=== PATIENT | female | born 1980 | race Caucasian/White ===

== ENCOUNTER 2018-09-09 19:02 | Emergency (ER) | payer OTHER ==
--- NOTE | 2018-09-09 19:54 | RAD REPORT ---
EXAM DESCRIPTION: CT - Head Brain Wo Cont - 09/09/2018 7:48 pm CLINICAL HISTORY: NUMBNESS Drowsiness COMPARISON: No comparisons TECHNIQUE: All CT scans are performed using dose optimization technique as appropriate and may inclu de automated exposure control or mA/KV adjustment according to patient size. FINDINGS: No intracranial hemorrhage, hydrocephalus or extra-axial fluid collection.No areas of brai n edema or evidence of midline shift. The paranasal sinuses and mastoids are clear. The calvarium is intact. IMPRESSION: No acute intracranial abnormality.
[2018-09-09 20:28] LABS: Absolute Lymphocytes (CBC) 2.5 K/uL (0.7-4.9); Absolute Monocytes 0.7 K/uL (0.1-1.3); Absolute Neutrophil 4.6 K/uL (1.8-8.0); Basophils % 0.9 % (0-1.3); Eosinophils % 11.6 % (0-4.4); Lymphocytes % 27.9 % (15.3-44.8); MPV 9.1 fL (7.6-11.3); Monocytes % 8.1 % (3.3-12.3); RBC Red Blood Cell Count 4.28 M/uL (3.86-4.86)
[2018-09-09 20:46] LABS: BUN Blood Urea Nitrogen 12 mg/dL (7-18); Bicarbonate 24 mmol/L (21-32); Glucose Level 84 mg/dL (74-106); Potassium 3.7 mmol/L (3.5-5.1); Sodium Level 138 mmol/L (136-145); Troponin (Emerg Dept Use Only) < 0.02 ng/mL (0.0-0.045)
[2018-09-09 20:59] LABS: Urine Blood NEGATIVE (NEG); Urine Glucose NEGATIVE (NEG); Urine Protein NEGATIVE (NEG); Urine Specific Gravity 1.015 (1.005-1.030); Urine pH 7.5 (5.0-7.0)
--- NOTE | 2018-09-09 21:42 | ER ---
Nurse's Notes [facility] Name: Malinda Cameron Age: 37 yrs Sex: Female : 1980 Arrival Date: 09/09/2018 Time: 19:04 Bed 6 Private MD: Diagnosis: Mononeuropathies of upper limb Presentation: 09/09 19:08 Presenting complaint: Patient states: that this am when she woke up her left thumb was fc tingling. Then this afternoon she noted that her left lower arm was tingling. Now sitting in triage the tingling is up to her upper arm. No leg deficits, speech deficits or headache. Pt able to hold clipboard and pen in triage and ambulate with no difficulties. Transition of care: patient was not received from another setting of care. Onset of symptoms was September 09, 2018 at 08:00. Risk Assessment: Do you want to hurt yourself or someone else? Patient reports no desire to harm self or others. Initial Sepsis Screen: Does the patient meet any 2 criteria? No. Patient's initial sepsis screen is negative. Does the patient have a suspected source of infection? No. Patient's initial sepsis screen is negative. Care prior to arrival: None. 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 - Social history:: Smoking status: Patient uses tobacco products, smokes one-half pack cigarettes per day, Patient/guardian denies using alcohol, street drugs. - Ebola Screening: : Patient negative for fever greater than or equal to 101.5 degrees Fahrenheit, and additional compatible Ebola Virus Disease symptoms Patient denies exposure to infectious person Patient denies travel to an Ebola-affected area in the 21 days before illness onset. Screenin:05 Abuse screen: Denies threats or abuse. Denies injuries from another. Nutritional ak1 screening: No deficits noted. Tuberculosis screening: No symptoms or risk factors identified. Fall Risk None identified. Assessment: 20:08 General: Appears in no apparent distress. Behavior is calm, cooperative. Pain: Denies ak1 pain. Pain began this morning. Neuro: Level of Consciousness is awake, alert, obeys commands, Oriented to person, place, time, situation, Machine Technician are equal bilaterally Moves all extremities. Gait is steady, Speech is normal, Facial symmetry appears normal, Pupils are PERRLA, Numbness in left arm. Cardiovascular: No deficits noted. Respiratory: No deficits noted. GI: No signs and/or symptoms were reported involving the gastrointestinal system. : No signs and/or symptoms were reported regarding the genitourinary system. EENT: No signs and/or symptoms were reported regarding the EENT system. Derm: No signs and/or symptoms reported regarding the dermatologic system. Musculoskeletal: No signs and/or symptoms reported regarding the musculoskeletal system. 21:04 Reassessment: Patient appears in no apparent distress at this time. No changes from ak1 previously documented assessment. Patient and/or family updated on plan of care and expected duration. Pain level reassessed. Patient is alert, oriented x 3, equal unlabored respirations, skin warm/dry/pink. Patient denies pain at this time. 21:45 Reassessment: Patient appears in no apparent distress at this time. No changes from ak1 previously documented assessment. Patient and/or family updated on plan of care and expected duration. Pain level reassessed. Patient states feeling better. Patient states symptoms have improved. Vital Signs: 19:11 BP 128 / 87; Pulse 69; Resp 18; Temp 98.(O); Pulse Ox 100% on R/A; Weight 99.79 kg (R); fc Height 5 ft. 9 in. (175.26 cm) (R); Pain 0/10; 20:24 BP 123 / 63; Pulse 55; Resp 16; Temp 98.; Pulse Ox 100% on R/A; Pain 0/10; ak1 21:05 BP 130 / 88; Pulse 59; Resp 16; Temp 98.2; Pulse Ox 100% on R/A; Pain 0/10; ak1 19:11 Body Mass Index 32.49 (99.79 kg, 175.26 cm) fc NIH Stroke Scale Scores: 21:43 NIHSS Score: 0 ED Course: 19:04 Patient arrived in ED. es 19:10 Triage completed. fc 19:11 Arm band placed on Patient placed in an exam room, on a stretcher. 19:16 Luis Snyder MD is Attending Physician. gs 19:[address] via wheelchair. vm2 19:47 CT completed. Patient tolerated procedure well. Patient moved back from CT. vm2 19:48 CT Head Brain wo Cont In Process Unspecified. EDMS 20:04 Nabila Escobar, RN is Primary Nurse. ak1 20:05 Patient has correct armband on for positive identification. Placed in gown. Bed in low ak1 position. Call light in reach. Side rails up X 1. Pulse ox on. NIBP on. 20:05 No provider procedures requiring assistance completed. ak1 20:23 Initial lab(s) drawn, by me, sent to lab. EKG done, by ED staff, reviewed by Luis Snyder MD. 21:05 Patient did not have IV access during this emergency room visit. ak1 21:41 Rivera Nichols MD is Referral Physician. Administered Medications: No medications were administered Outcome: 21:04 Condition: stable ak1 21:42 Discharge ordered by . 21:45 Discharged to home ambulatory. ak1 21:45 Discharge instructions given to patient, Instructed on discharge instructions, follow up and referral plans. Demonstrated understanding of instructions, follow-up care. 21:45 Patient left the ED. ak1 NIH Stroke Scale - NIH Stroke Score Date: 09/09/2018 Time: 21:43 Total Score = 0 1a. Level of Consciousness (LOC) - 0(Alert) 1b. Level of Consciousness (LOC) (Year \T\ Age) - 0(Both) 1c. LOC Commands (Open \T\ Closes Eyes/E Business Manager) - 0(Both) 2. Best Gaze (Lateral Gaze Paresis) - 0(Normal) 3. Visual Field Loss - 0(No visual loss) 4. Facial Palsy - 0(Normal) 5a. Left Arm: Motor (10-second hold) - 0(No drift) 5b. Right Arm: Motor (10-second hold) - 0(No drift) 6a. Left Leg: Motor (5-second hold - always test supine) - 0(No drift) 6b. Right Leg: Motor (5-second hold - always test supine) - 0(No drift) 7. Limb Ataxia (finger/nose \T\ heel/brandt - test with eyes open) - 0(Absent) 8. Sensory Loss (pinprick arms/legs/face) - 0(Normal) 9. Best Language: Aphasia (description/naming/reading) - 0(No aphasia) 10. Dysarthria (speech clarity - read or repeat words) - 0(Normal) 11. Extinction and Inattention (visual/tactile/auditory/spatial/personal) - 0(No abnormality) Initials: Signatures: Dispatcher [employer] Briana Chaney Felicia RN RN Nabila Adams RN RN lee1 Yenifer Hussein Luis Haines MD MD Corrections: (The following items were deleted from the chart) 19:13 19:08 Presenting complaint: Patient states: that this am when she woke up her fc left thumb was tingling. Then this afternoon she noted that her left lower arm was tingling. Now sitting in triage the tingling is up to her upper arm. No leg deficits, speech deficits or headache. fc
--- NOTE | 2018-09-09 21:42 | EDPHYS ---
Physician Documentation [facility] Name: Malinda Cameron Age: 37 yrs Sex: Female : 1980 Arrival Date: 09/09/2018 Time: 19:04 Bed 6 Private MD: ED Physician Luis Snyder HPI: 09/09 21:43 This 37 yrs old Female presents to ER via Ambulatory with complaints of gs Numbness Of Arm. 21:43 The patient's problem is reported as paresthesias, in left upper extremity. Onset: The gs symptoms/episode began/occurred this morning, at 07:00. Duration: The episodes are intermittent. The symptoms are alleviated by nothing. The symptoms are aggravated by nothing. Associated signs and symptoms: Pertinent negatives: confusion, weakness. Severity of symptoms: At their worst the symptoms were mild in the emergency department the symptoms are unchanged. The patient has not experienced similar symptoms in the past. The patient has not recently seen a physician. 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 - Social history:: Smoking status: Patient uses tobacco products, smokes one-half pack cigarettes per day, Patient/guardian denies using alcohol, street drugs. - Ebola Screening: : Patient negative for fever greater than or equal to 101.5 degrees Fahrenheit, and additional compatible Ebola Virus Disease symptoms Patient denies exposure to infectious person Patient denies travel to an Ebola-affected area in the 21 days before illness onset. ROS: 21:43 All other systems are negative. gs Exam: 21:43 Head/Face: Normocephalic, atraumatic. Eyes: Pupils equal round and reactive to light, gs extra-ocular motions intact. Lids and lashes normal. Conjunctiva and sclera are non-icteric and not injected. Cornea within normal limits. Periorbital areas with no swelling, redness, or edema. ENT: Nares patent. No nasal discharge, no septal abnormalities noted. Tympanic membranes are normal and external auditory canals are clear. Oropharynx with no redness, swelling, or masses, exudates, or evidence of obstruction, uvula midline. Mucous membranes moist. Neck: Trachea midline, no thyromegaly or masses palpated, and no cervical lymphadenopathy. Supple, full range of motion without nuchal rigidity, or vertebral point tenderness. No Meningismus. Chest/axilla: Normal chest wall appearance and motion. Nontender with no deformity. No lesions are appreciated. Cardiovascular: Regular rate and rhythm with a normal S1 and S2. No gallops, murmurs, or rubs. Normal PMI, no JVD. No pulse deficits. Respiratory: Lungs have equal breath sounds bilaterally, clear to auscultation and percussion. No rales, rhonchi or wheezes noted. No increased work of breathing, no retractions or nasal flaring. Abdomen/GI: Soft, non-tender, with normal bowel sounds. No distension or tympany. No guarding or rebound. No evidence of tenderness throughout. Back: No spinal tenderness. No costovertebral tenderness. Full range of motion. Skin: Warm, dry with normal turgor. Normal color with no rashes, no lesions, and no evidence of cellulitis. MS/ Extremity: Pulses equal, no cyanosis. Neurovascular intact. Full, normal range of motion. 21:43 Constitutional: The patient appears in no acute distress, alert, awake. 21:43 Neuro: Exam negative for Orientation: is normal, to person, place, time \T\ situation. Mentation: is normal, Cranial nerves: CN II- XII are normal as tested, Cerebellar function: normal finger to nose testing, Motor: moves all fours, strength is normal, Sensation: tingling, that is mild, of the left wrist and palmar aspect of left forearm, pin prick testing is normal. Vital Signs: 19:11 BP 128 / 87; Pulse 69; Resp 18; Temp 98.(O); Pulse Ox 100% on R/A; Weight 99.79 kg (R); fc Height 5 ft. 9 in. (175.26 cm) (R); Pain 0/10; 20:24 BP 123 / 63; Pulse 55; Resp 16; Temp 98.; Pulse Ox 100% on R/A; Pain 0/10; ak1 21:05 BP 130 / 88; Pulse 59; Resp 16; Temp 98.2; Pulse Ox 100% on R/A; Pain 0/10; ak1 19:11 Body Mass Index 32.49 (99.79 kg, 175.26 cm) fc NIH Stroke Scale Scores: 21:43 NIHSS Score: 0 gs MDM: 19:26 Patient medically screened. gs 21:43 Differential diagnosis: neuropathy, cervical radiculopathy, neuropraxia,cva. Data gs reviewed: vital signs, nurses notes. Counseling: I had a detailed discussion with the patient and/or guardian regarding: the historical points, exam findings, and any diagnostic results supporting the discharge/admit diagnosis, lab results, radiology results, the need for outpatient follow up. Response to treatment: the patient's symptoms have markedly improved after treatment, and as a result, I will discharge patient. 09/09 19:28 Order name: CBC with Diff; Complete Time: 21:04 09/09 19:28 Order name: Basic Metabolic Panel; Complete Time: 21:04 09/09 19:28 Order name: Troponin (emerg Dept Use Only); Complete Time: 21:04 gs 09/09 19:28 Order name: CT Head Brain wo Cont; Complete Time: 20:07 09/09 20:35 Order name: Urine Dipstick--Ancillary (enter results); Complete Time: 21:04 ag4 09/09 20:35 Order name: Urine --Ancillary (enter results); Complete Time: 21:04 ag4 09/09 19:28 Order name: EKG - Nurse/Tech; Complete Time: 20:10 09/09 19:28 Order name: EKG; Complete Time: 19:28 gs 09/09 19:28 Order name: Urine Test (obtain specimen); Complete Time: 20:23 gs 09/09 19:28 Order name: Urine Dipstick-Ancillary (obtain specimen); Complete Time: 20:23 gs Administered Medications: No medications were administered Disposition: 09/09/18 21:42 Discharged to Home. Impression: Mononeuropathies of upper limb. - Condition is Stable. - Discharge Instructions: Focal Neuropathy. - Medication Reconciliation Form, Thank You Letter, Antibiotic Education, Prescription Opioid Use form. - Follow up: Rivera Nichols MD; When: 2 - 3 days; Reason: Re-evaluation by your physician. NIH Stroke Scale - NIH Stroke Score Date: 09/09/2018 Time: 21:43 Total Score = 0 1a. Level of Consciousness (LOC) - 0(Alert) 1b. Level of Consciousness (LOC) (Year \T\ Age) - 0(Both) 1c. LOC Commands (Open \T\ Closes Eyes/Pet Walker) - 0(Both) 2. Best Gaze (Lateral Gaze Paresis) - 0(Normal) 3. Visual Field Loss - 0(No visual loss) 4. Facial Palsy - 0(Normal) 5a. Left Arm: Motor (10-second hold) - 0(No drift) 5b. Right Arm: Motor (10-second hold) - 0(No drift) 6a. Left Leg: Motor (5-second hold - always test supine) - 0(No drift) 6b. Right Leg: Motor (5-second hold - always test supine) - 0(No drift) 7. Limb Ataxia (finger/nose \T\ heel/brandt - test with eyes open) - 0(Absent) 8. Sensory Loss (pinprick arms/legs/face) - 0(Normal) 9. Best Language: Aphasia (description/naming/reading) - 0(No aphasia) 10. Dysarthria (speech clarity - read or repeat words) - 0(Normal) 11. Extinction and Inattention (visual/tactile/auditory/spatial/personal) - 0(No abnormality) Initials: Signatures: Dispatcher [employer] EDMS Dorys Blake RN RN Nabila Adams RN RN ak1 Luis Snyder MD MD Corrections: (The following items were deleted from the chart) 21:45 21:42 09/09/2018 21:42 Discharged to Home. Impression: Mononeuropathies of ak1 upper limb. Condition is Stable. Forms are Medication Reconciliation Form, Thank You Letter, Antibiotic Education, Prescription Opioid Use. Follow up: Rivera Nichols; When: 2 - 3 days; Reason: Re-evaluation by your physician. gs
[2018-09-09 22:45] VITALS: O2SAT 100
[2018-09-09 22:47] VITALS: BP 130/88; TEMP 98.2
--- NOTE | 2018-09-10 07:38 | EKG ---
Test Date: 2018-09-09 Test Time: 19:29:36 Director Of Radiology: JESSICA MEASUREMENT RESULTS: Intervals: Rate: 62 WY: 158 QRSD: 94 QT: 434 QTc: 440 [place]: P: 50 WY: 158 QRS: 52 T: 48 INTERPRETIVE STATEMENTS: Normal sinus rhythm Normal ECG Compared to ECG 02/09/2016 08:43:26 Sinus arrhythmia no longer present Ventricular premature complex(es) no longer present Electronically Signed On 09-10-18 07:38:25 FOLDER AND NOTCHER by Vivek Lancaster
== END 2018-09-09 21:45 | disposition home or self-care (01) ==
LOC: ER 19:02
DX: G56.92 Unspecified mononeuropathy of left upper limb (principal); I10 Essential (primary) hypertension; I50.9 Heart failure, unspecified; Z79.82 Long term (current) use of aspirin; Z88.5 Allergy status to narcotic agent
CPT/HCPCS: 36415; 70450; 80048; 81003; 81025; 84484; 85025; 93005; 99284

== ENCOUNTER 2019-08-04 18:53 | Emergency (ER) | payer OTHER ==
[2019-08-04] MEDS ORDERED: TETANUS & DIPHTHERIA TOX,ADULT 0.5 ML VIAL ONE (19:34)
[2019-08-04] MEDS ORDERED: LIDOCAINE 1% MPF 5 ML VIAL ONE (19:34)
--- NOTE | 2019-08-04 20:44 | ER ---
Nurse's Notes [facility] Name: Malinda Cameron Age: 38 yrs Sex: Female : 1980 Arrival Date: 08/04/2019 Time: 18:55 Bed 8 Private MD: Diagnosis: Laceration without foreign body of right hand Presentation: 08/04 19:05 Presenting complaint: Patient states: Washing dishes and cut dorsal side of right hand tl2 on glass. Pt applied rag and cloth over the wound to control bleeding. Laceration continues to bleed when pressure is relieved. 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 Transition of care: patient was not received from another setting of care. Complicating Factors: There are no complicating factors for this patient. Onset of symptoms was August 04, 2019 at 18:40. Risk Assessment: Do you want to hurt yourself or someone else? Patient reports no desire to harm self or others. Initial Sepsis Screen: Does the patient meet any 2 criteria? No. Patient's initial sepsis screen is negative. Does the patient have a suspected source of infection? No. Patient's initial sepsis screen is negative. Care prior to arrival: rag and cloth applied for pressure. 19:05 Method Of Arrival: Ambulatory tl2 19:05 Acuity: POWER 4 tl2 Triage Assessment: 19:08 General: Appears in no apparent distress. Behavior is calm, cooperative, appropriate tl2 for age. Pain: Complains of pain in right hand. Injury Description: Laceration sustained to Right first web space is clean, 0.5 to 2.5 cm long, bleeding moderately, was sustained 30-60 minutes ago. is bleeding moderately. 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 - Social history:: Smoking status: Patient uses tobacco products. - Ebola Screening: : No symptoms or risks identified at this time. Screenin:23 Abuse screen: Denies threats or abuse. Nutritional screening: No deficits noted. ea Tuberculosis screening: No symptoms or risk factors identified. Fall Risk None identified. Assessment: 19:21 General: Appears uncomfortable, Behavior is calm, cooperative, appropriate for age. ea Pain: Complains of pain in Right first web space. Neuro: Level of Consciousness is awake, alert, obeys commands, Oriented to person, place, time, situation. Cardiovascular: Patient's skin is warm and dry. Respiratory: Airway is patent Respiratory effort is even, unlabored, Respiratory pattern is regular, symmetrical. Musculoskeletal: Circulation, motion, and sensation intact. Injury Description: Laceration sustained to Right first web space is clean, 2.6 to 7.5 cm long, was sustained 30-60 minutes ago. is bleeding a small amount. 20:57 Reassessment: Patient and/or family updated on plan of care and expected duration. Pain ea level reassessed. Patient is alert, oriented x 3, equal unlabored respirations, skin warm/dry/pink. Discharge instruction given to patient, verbalized the understanding of instruction. Pt left ED ambulatory tolerating well Patient states feeling better. Vital Signs: 19:08 BP 127 / 74; Pulse 77; Resp 18; Temp 97.6; Pulse Ox 99% on R/A; Weight 99.79 kg; Height tl2 5 ft. 9 in. (175.26 cm); Pain 2/10; 20:45 BP 126 / 78; Pulse 70; Resp 18; Temp 97.9; Pulse Ox 100% ; ea 19:08 Body Mass Index 32.49 (99.79 kg, 175.26 cm) tl2 ED Course: 18:55 Patient arrived in ED. mr 18:57 Lucas Matos NP is PHCP. pm1 18:57 Shane Mahoney MD is Attending Physician. pm1 19:07 Triage completed. tl2 19:08 Arm band placed on right wrist. tl2 19:20 Stephanie Antonio, DAVE is Primary Nurse. ea 19:23 Patient has correct armband on for positive identification. Bed in low position. Call ea light in reach. 20:16 Hand Right 3 View XRAY In Process Unspecified. EDMS 20:43 Javi Teresa MD is Referral Physician. pm1 20:58 No provider procedures requiring assistance completed. Patient did not have IV access ea during this emergency room visit. 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 Exp: ea 02/14/2021. Lot #: [id number]. } Route: IM; Site: right deltoid; 20:30 Follow up: Response: No adverse reaction ea 20:28 Drug: Lidocaine (1 %) 5 ml Volume: 5 ml; Route: Infiltration; ea Outcome: 20:44 Discharge ordered by MD. pm1 20:58 Discharged to home ambulatory. ea 20:58 Condition: stable 20:58 Discharge instructions given to patient, Instructed on discharge instructions, follow up and referral plans. medication usage, Demonstrated understanding of instructions, follow-up care, medications, Prescriptions given X 2. 20:59 Patient left the ED. ea Signatures: Dispatcher [employer] Judi Salazar CarloLucas NP MAINTENANCE MACHINE REPAIRER pm1 Marina Sheldon, DAVE RN tl2 Stephanie Antonio RN RN ea
--- NOTE | 2019-08-04 20:45 | EDPHYS ---
Physician Documentation [facility] Name: Malinda Cameron Age: 38 yrs Sex: Female : 1980 Arrival Date: 08/04/2019 Time: 18:55 Bed 8 Private MD: ED Physician Shane Mahoney HPI: 08/04 19:21 This 38 yrs old Female presents to ER via Ambulatory with complaints of pm1 Laceration To Hand. 19:21 The patient has a laceration related to: washing dishes occurred at home, and there are pm1 no complicating factors. The injury was accidental, broken wine glass cut her hand. The laceration(s) is(are) located on the dorsum of right hand. Onset: The symptoms/episode began/occurred just prior to arrival. Associated signs and symptoms: Pertinent negatives: deformity, dizziness, numbness distal to injury, suspected foreign body. The patient has not experienced similar symptoms in the past. The patient has not recently seen a physician. 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 - Social history:: Smoking status: Patient uses tobacco products. - Ebola Screening: : No symptoms or risks identified at this time. ROS: 19:21 Constitutional: Negative for fever, chills, and weight loss, Cardiovascular: Negative pm1 for chest pain, palpitations, and edema, Respiratory: Negative for shortness of breath, cough, wheezing, and pleuritic chest pain, Abdomen/GI: Negative for abdominal pain, nausea, vomiting, diarrhea, and constipation, MS/Extremity: Negative for injury and deformity. 19:21 Skin: Positive for laceration(s), of the dorsum of right hand. 19:21 Neuro: Negative for numbness, tingling. Exam: 19:21 Constitutional: This is a well developed, well nourished patient who is awake, alert, pm1 and in no acute distress. Head/Face: Normocephalic, atraumatic. Chest/axilla: Normal chest wall appearance and motion. Nontender with no deformity. No lesions are appreciated. Cardiovascular: Regular rate and rhythm with a normal S1 and S2. No gallops, murmurs, or rubs. Normal PMI, no JVD. No pulse deficits. Respiratory: Lungs have equal breath sounds bilaterally, clear to auscultation and percussion. No rales, rhonchi or wheezes noted. No increased work of breathing, no retractions or nasal flaring. Back: No spinal tenderness. No costovertebral tenderness. Full range of motion. 19:21 MS/ Extremity: Pulses equal, no cyanosis. Neurovascular intact. Full, normal range of motion. 19:21 Skin: Appearance: normal except for affected area, injury, laceration(s), of the dorsal aspect of MIP second finger right hand. 19:21 Neuro: Orientation: is normal, Motor: is normal, Sensation: is normal, no obvious gross deficits. Vital Signs: 19:08 BP 127 / 74; Pulse 77; Resp 18; Temp 97.6; Pulse Ox 99% on R/A; Weight 99.79 kg; Height tl2 5 ft. 9 in. (175.26 cm); Pain 2/10; 20:45 BP 126 / 78; Pulse 70; Resp 18; Temp 97.9; Pulse Ox 100% ; ea 19:08 Body Mass Index 32.49 (99.79 kg, 175.26 cm) tl2 Laceration: 20:39 Wound Repair of 3cm ( 1.2in ) subcutaneous laceration to dorsum of right hand MIP pm1 second finger. Irregularly shaped.. Distal neuro/vascular/tendon intact. Anesthesia: Local anesthetic administered with 3 mls of 1% lidocaine. Wound prep: Extensive cleansing with hibiclenz by nurse, Wound irrigation with saline by nurse, Wound explored extensively, Copious irrigation. Skin closed with 8 4-0 Prolene using simple sutures and sterile technique. Dressed with Neosporin, 4x4's, finger splint. Patient tolerated well. MDM: 18:57 Patient medically screened. pm1 19:23 Data reviewed: vital signs. Data interpreted: Pulse oximetry: on room air is 99 %. pm1 Interpretation: normal. 20:43 Counseling: I had a detailed discussion with the patient and/or guardian regarding: the pm1 historical points, exam findings, and any diagnostic results supporting the discharge/admit diagnosis, radiology results, the need for outpatient follow up, a hand specialist, to return to the emergency department if symptoms worsen or persist or if there are any questions or concerns that arise at home. 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 Exp: ea 02/14/2021. Lot #: [id number]. } Route: IM; Site: right deltoid; 20:30 Follow up: Response: No adverse reaction ea 20:28 Drug: Lidocaine (1 %) 5 ml Volume: 5 ml; Route: Infiltration; ea Disposition: 08/05 07:30 Co-signature as Attending Physician, Shane Mahoney MD I agree with the assessment and kdr plan of care. Disposition: 08/04/19 20:44 Discharged to Home. Impression: Laceration without foreign body of right hand. - Condition is Stable. - Discharge Instructions: Laceration Care, Adult. - Prescriptions for Keflex 500 mg Oral Capsule - take 1 capsule by ORAL route every 12 hours for 10 days; 20 capsule. Tylenol- Codeine #3 300-30 mg Oral Tablet - take 2 tablets by ORAL route every 6 hours As needed; 20 tablet. - Medication Reconciliation Form, Thank You Letter, Antibiotic Education, Prescription Opioid Use, Work release form form. - Follow up: Emergency Department; When: As needed; Reason: Worsening of condition. Follow up: Javi Teresa MD; When: 2 - 3 days; Reason: Recheck today's complaints, Continuance of care, Re-evaluation by your physician. - Problem is new. - Symptoms have improved. Signatures: Dispatcher [employer] Shane Patterson MD MD kdr Marinas, Lucas, DIRECTOR SANITATION BUREAU DIRECTOR SANITATION BUREAU pm1 Marina Sheldon RN RN tl2 Stephanie Antonio RN RN ea Corrections: (The following items were deleted from the chart) 08/04 20:59 20:44 08/04/2019 20:44 Discharged to Home. Impression: Laceration without foreign body ea of right hand. Condition is Stable. Forms are Medication Reconciliation Form, Thank You Letter, Antibiotic Education, Prescription Opioid Use. Follow up: Emergency Department; When: As needed; Reason: Worsening of condition. Follow up: Javi Teresa; When: 2 - 3 days; Reason: Recheck today's complaints, Continuance of care, Re-evaluation by your physician. Problem is new. Symptoms have improved. pm1
--- NOTE | 2019-08-05 08:40 | RAD REPORT ---
EXAM DESCRIPTION: RAD - Hand Right 3 View - 08/04/2019 8:16 pm CLINICAL HISTORY: Laceration to the dorsal side of the hand, hand pain COMPARISON: None. FINDINGS: No fracture is identified. There is no dislocation or periosteal reaction noted. Soft tis dyllan swelling is present over the dorsal margin of the hand. Bandaging is in place. Foreign body is no t suspected. IMPRESSION: Negative right hand examination for bone or joint abnormality. Foreign body is not suspected.
== END 2019-08-04 20:59 | disposition home or self-care (01) ==
LOC: ER 18:53
PROC: 0JQJ0ZZ Repair Right Hand Subcutaneous Tissue and Fascia, Open Approach (ICD-10-PCS; principal; 2019-08-04)
DX: S61.411A Laceration without foreign body of right hand, initial encounter (principal); W25.XXXA Contact with sharp glass, initial encounter; Y93.G1 Activity, food preparation and clean up; Y92.009 Unspecified place in unspecified non-institutional (private) residence as the place of occurrence of the external cause; Z23 Encounter for immunization; Z79.82 Long term (current) use of aspirin; Z88.5 Allergy status to narcotic agent; I10 Essential (primary) hypertension; I50.9 Heart failure, unspecified
CPT/HCPCS: 90471; 90714; 99283

== ENCOUNTER 2019-10-28 03:26 | Emergency (ER) | payer OTHER ==
[2019-10-28] MEDS ORDERED: KETOROLAC 30 MG/ML INJ ONE (04:12)
--- NOTE | 2019-10-28 04:35 | ER ---
Nurse's Notes [facility] Name: Malinda Cameron Age: 38 yrs Sex: Female : 1980 Arrival Date: 10/28/2019 Time: 03:29 Bed 5 Private MD: DIANA CALI Diagnosis: Acute upper respiratory infection, unspecified Presentation: 10/28 03:38 Presenting complaint: Patient states: I went to the [facility] yesterday and now I am jb4 having flu like symptoms, nausea, vomiting, body aches, chills and fever. Transition of care: patient was not received from another setting of care. Onset of symptoms was October 28, 2019. Risk Assessment: Do you want to hurt yourself or someone else? Patient reports no desire to harm self or others. Initial Sepsis Screen: Does the patient meet any 2 criteria? HR > 90 bpm. Yes Does the patient have a suspected source of infection? No. Patient's initial sepsis screen is negative. Care prior to arrival: None. 03:38 Method Of Arrival: Ambulatory jb4 03:38 Acuity: POWER 3 jb4 Historical: - Allergies: 03:40 Codeine; jb4 - Home Meds: 03:40 aspirin 81 mg Oral TbEC 1 tab once daily [Active]; Bystolic 10 mg Oral tab [Active]; jb4 - PMHx: 03:40 Hypertension; Onset of CHF; PVCs; jb4 - PSHx: 03:40 ; jb4 - Immunization history:: Adult Immunizations up to date. - Coronavirus screen:: The patient has NOT traveled to [place] in the past 14 days. Proceed with normal triage process as indicated. The patient has NOT had contact with known/suspected case of Coronavirus? Proceed with normal triage procedures. - Social history:: Patient/guardian denies using The patient lives with family, Smoking status: Patient denies any tobacco usage or history of. Patient/guardian denies using alcohol, street drugs. - Family history:: not pertinent. - Ebola Screening: : No symptoms or risks identified at this time. Screenin:40 Abuse screen: Denies threats or abuse. Nutritional screening: No deficits noted. jb4 Tuberculosis screening: No symptoms or risk factors identified. Fall Risk None identified. Assessment: 03:40 General: Appears in no apparent distress. uncomfortable, Behavior is calm, cooperative, jb4 appropriate for age. Pain: Complains of pain in generalized. Pain does not radiate. Pain currently is 6 out of 10 on a pain scale. Quality of pain is described as aching, Pain began 1 day ago. Is continuous. Neuro: Level of Consciousness is awake, alert, obeys commands, Oriented to person, place, time, situation. Cardiovascular: Patient's skin is warm and dry. Respiratory: Airway is patent Respiratory effort is even, unlabored, Respiratory pattern is regular, symmetrical. GI: Reports nausea, vomiting. : No signs and/or symptoms were reported regarding the genitourinary system. EENT: Reports nasal congestion. Derm: Skin is intact, Skin is pink, warm \T\ dry. Musculoskeletal: Circulation, motion, and sensation intact. Range of motion: intact in all extremities. 04:43 Reassessment: Patient appears in no apparent distress at this time. Patient and/or jb4 family updated on plan of care and expected duration. Pain level reassessed. Patient is alert, oriented x 3, equal unlabored respirations, skin warm/dry/pink. Pt verbalized understanding of d/c and follow up instructions. Ambulated out of ED with a steady gait. Verbalized decrease in pain from 6/10 to 2/10. Reports overall feeling better. Vital Signs: 03:40 BP 123 / 77; Pulse 97; Resp 20; Temp 100.5(O); Pulse Ox 97% on R/A; Weight 102.06 kg jb4 (R); Height 5 ft. 9 in. (175.26 cm); Pain 6/10; 04:43 BP 101 / 77; Pulse 95; Resp 18; Temp 97.8(O); Pulse Ox 98% on R/A; Pain 2/10; jb4 03:40 Body Mass Index 33.23 (102.06 kg, 175.26 cm) jb4 ED Course: 03:29 Patient arrived in ED. es 03:30 DIANA CALI is Private Physician. es 03:32 Teri Rodriguez MD is Attending Physician. ma2 03:38 Brayan Rivera, DAVE is Primary Nurse. jb4 03:39 Triage completed. jb4 03:40 Arm band placed on right wrist. jb4 03:40 Patient has correct armband on for positive identification. Bed in low position. Call jb4 light in reach. Side rails up X 1. Pulse ox on. NIBP on. 03:50 Flu and/or RSV swab sent to lab. Strep swab sent to lab. jb4 04:43 No provider procedures requiring assistance completed. Patient did not have IV access jb4 during this emergency room visit. Administered Medications: 04:12 Drug: TORadol 60 mg Route: IM; Site: right gluteus; lp1 04:46 Follow up: Response: No adverse reaction; Pain is decreased jb4 Outcome: 04:34 Discharge ordered by . [email or web address] 04:43 Discharged to home ambulatory. jb4 04:43 Condition: stable 04:43 Discharge instructions given to patient, Instructed on discharge instructions, follow up and referral plans. medication usage, Demonstrated understanding of instructions, follow-up care, medications, Prescriptions given X 1. 04:46 Patient left the ED. jb4 Signatures: Briana Smith Laura, RN RN lp1 Brayan Rivera RN RN jb4 Teri Rodriguez MD MD ma2 Corrections: (The following items were deleted from the chart) 03:41 03:38 Initial Sepsis Screen: Does the patient meet any 2 criteria? No. Patient's jb4 initial sepsis screen is negative. Does the patient have a suspected source of infection? No. Patient's initial sepsis screen is negative. jb4 03:20 General: Appears in no apparent distress. uncomfortable, Behavior is calm, jb4 cooperative, appropriate for age, jb4 03:20 Pain: Complains of pain in generalized. Pain does not radiate. Pain currently is jb4 6 out of 10 on a pain scale. Quality of pain is described as aching, Pain began 1 day ago. Is continuous, jb4 03:20 Neuro: Level of Consciousness is awake, alert, obeys commands, Oriented to jb4 person, place, time, situation, jb4 03:20 Cardiovascular: Patient's skin is warm and dry. jb4 jb4 03:20 Respiratory: Airway is patent Respiratory effort is even, unlabored, Respiratory jb4 pattern is regular, symmetrical, jb4 03:20 GI: Reports nausea, vomiting, jb4 jb4 03:20 : No signs and/or symptoms were reported regarding the genitourinary system. [id number] 03:20 EENT: Reports nasal congestion jb4 jb4 03:20 Derm: Skin is intact, Skin is pink, warm \T\ dry. jb4 jb4 03:20 Musculoskeletal: Circulation, motion, and sensation intact. Range of motion: jb4 intact in all extremities, jb4
--- NOTE | 2019-10-28 04:35 | EDPHYS ---
Physician Documentation [facility] Name: Malinda Cameron Age: 38 yrs Sex: Female : 1980 Arrival Date: 10/28/2019 Time: 03:29 Bed 5 Private MD: DIANA CALI ED Physician Teri Rodriguez HPI: 10/28 04:06 This 38 yrs old Female presents to ER via Ambulatory with complaints of Flu ma2 Symptoms, Body ache. 04:06 The patient presents with sore throat. The patient describes throat pain as burning. ma2 Severity of symptoms: At their worst the symptoms were mild, in the emergency department the symptoms are unchanged. Associated signs and symptoms: Pertinent negatives cough, dysphagia, fever. The patient has experienced similar episodes in the past. Historical: - Allergies: 03:40 Codeine; jb4 - Home Meds: 03:40 aspirin 81 mg Oral TbEC 1 tab once daily [Active]; Bystolic 10 mg Oral tab [Active]; jb4 - PMHx: 03:40 Hypertension; Onset of CHF; PVCs; jb4 - PSHx: 03:40 ; jb4 - Immunization history:: Adult Immunizations up to date. - Coronavirus screen:: The patient has NOT traveled to [place] in the past 14 days. Proceed with normal triage process as indicated. The patient has NOT had contact with known/suspected case of Coronavirus? Proceed with normal triage procedures. - Social history:: Patient/guardian denies using The patient lives with family, Smoking status: Patient denies any tobacco usage or history of. Patient/guardian denies using alcohol, street drugs. - Family history:: not pertinent. - Ebola Screening: : No symptoms or risks identified at this time. ROS: 04:06 Constitutional: Negative for fever, chills, and weight loss. ma2 04:06 All other systems are negative. Exam: 04:06 Constitutional: This is a well developed, well nourished patient who is awake, alert, ma2 and in no acute distress. ENT: Nares patent. No nasal discharge, no septal abnormalities noted. Tympanic membranes are normal and external auditory canals are clear. Oropharynx with no redness, swelling, or masses, exudates, or evidence of obstruction, uvula midline. Mucous membranes moist. Neck: Trachea midline, no thyromegaly or masses palpated, and no cervical lymphadenopathy. Supple, full range of motion without nuchal rigidity, or vertebral point tenderness. No Meningismus. Chest/axilla: Normal chest wall appearance and motion. Nontender with no deformity. No lesions are appreciated. Cardiovascular: Regular rate and rhythm with a normal S1 and S2. No gallops, murmurs, or rubs. Normal PMI, no JVD. No pulse deficits. Respiratory: Lungs have equal breath sounds bilaterally, clear to auscultation and percussion. No rales, rhonchi or wheezes noted. No increased work of breathing, no retractions or nasal flaring. Abdomen/GI: Soft, non-tender, with normal bowel sounds. No distension or tympany. No guarding or rebound. No evidence of tenderness throughout. Neuro: Awake and alert, GCS 15, oriented to person, place, time, and situation. Cranial nerves II-XII grossly intact. Motor strength 5/5 in all extremities. Sensory grossly intact. Cerebellar exam normal. Normal gait. Vital Signs: 03:40 BP 123 / 77; Pulse 97; Resp 20; Temp 100.5(O); Pulse Ox 97% on R/A; Weight 102.06 kg jb4 (R); Height 5 ft. 9 in. (175.26 cm); Pain 6/10; 04:43 BP 101 / 77; Pulse 95; Resp 18; Temp 97.8(O); Pulse Ox 98% on R/A; Pain 2/10; jb4 03:40 Body Mass Index 33.23 (102.06 kg, 175.26 cm) jb4 MDM: 03:32 Patient medically screened. dc2 04:06 Differential diagnosis: Allergic rhinitis, gastroesophageal reflux disease, laryngitis, ma2 pharyngitis. Data reviewed: vital signs, nurses notes. Counseling: I had a detailed discussion with the patient and/or guardian regarding: the historical points, exam findings, and any diagnostic results supporting the discharge/admit diagnosis, the presence of at least one elevated blood pressure reading (>120/80) during this emergency department visit, the need for outpatient follow up. Response to treatment: the patient's symptoms have mildly improved after treatment. 10/28 03:32 Order name: Flu; Complete Time: 04:33 ma2 10/28 03:32 Order name: Strep; Complete Time: 04:33 dc2 10/28 04:33 Order name: Throat Culture EDMS Administered Medications: 04:12 Drug: TORadol 60 mg Route: IM; Site: right gluteus; lp1 04:46 Follow up: Response: No adverse reaction; Pain is decreased jb4 Disposition: 10/28/19 04:34 Discharged to Home. Impression: Acute upper respiratory infection, unspecified. - Condition is Stable. - Discharge Instructions: Upper Respiratory Infection, Adult. - Prescriptions for Zithromax Z- Ad 250 mg Oral Tablet - take 1 tablet by ORAL route as directed for 5 days Day 1 - take two (2) tablets one time. Day 2, 3, 4 , 5 take one (1) tablet once daily.; 6 tablet. - Thank You Letter, Antibiotic Education, Prescription Opioid Use form. - Follow up: Private Physician; When: Tomorrow; Reason: Continuance of care. Signatures: Dispatcher [employer] EDIL Maribel Erickson RN RN lp1 Brayan Rivera RN RN jb4 Teri Rodriguez MD MD ma2 Corrections: (The following items were deleted from the chart) 04:46 04:34 10/28/2019 04:34 Discharged to Home. Impression: Acute upper respiratory jb4 infection, unspecified. Condition is Stable. Forms are Medication Reconciliation Form, Thank You Letter, Antibiotic Education, Prescription Opioid Use. Follow up: Private Physician; When: Tomorrow; Reason: Continuance of care. ma2
[2019-10-28 04:53] VITALS: BP 101/77; TEMP 97.8; O2SAT 98
== END 2019-10-28 04:46 | disposition home or self-care (01) ==
LOC: ER 03:26
DX: J06.9 Acute upper respiratory infection, unspecified (principal); Z88.6 Allergy status to analgesic agent; I10 Essential (primary) hypertension
CPT/HCPCS: 87070; 87081; 87804; 96372; 99284

== ENCOUNTER 2023-07-31 07:54 | Day surgery (SDC) | payer OTHER ==
--- NOTE | 2023-07-28 15:59 | RAD REPORT ---
EXAM DESCRIPTION: RAD - Chest Pa And Lat (2 Views) - 07/28/2023 3:54 pm CLINICAL HISTORY: PRE OP EXCISIONAL BX SCALP MASS Chest pain. COMPARISON: Chest Pa And Lat (2 Views) dated 04/06/2016; Chest Single View dated 02/09/2016; Chest Sin gle View dated 12/29/2015; CHEST SINGLE VIEW dated 11/05/2014 FINDINGS: The lungs are clear. The heart is normal in size. No displaced fractures. IMPRESSION: No acute or concerning finding suspected. The USPSTF recommends annual screening for lung cancer with low-dose CT (LDCT) in adults aged 50 to 80 years who have a 20 pack-year smoking history and currently smoke or have quit within the past 15 years.
[2023-07-28 16:28] LABS: Absolute Lymphocytes (CBC) 1.9 K/uL (0.7-4.9); Hematocrit 38.3 % (36.0-45.0); Lymphocytes % 15.7 % (15.3-44.8); MCV 94.8 fL (80-100); MPV 8.8 fL (7.6-11.3); Platelets 354 thou/uL (152-406); RBC Red Blood Cell Count 4.04 M/uL (3.86-4.86)
[2023-07-28 16:32] LABS: Potassium 3.9 mEq/L (3.5-5.1)
[2023-07-31] MEDS ORDERED: Ringers Lactate 1,000 ML IV ONE (08:13)
[2023-07-31] MEDS ORDERED: CEFAZOLIN SODIUM 1 GM/VIAL ONE (08:14)
[2023-07-31] MEDS ORDERED: propofoL 200 MG/20 ML VIAL IV ONE (08:28)
[2023-07-31] MEDS ORDERED: MIDAZOLAM HCL 2 MG/2 ML INJ ONE (08:28)
[2023-07-31] MEDS ORDERED: FENTANYL CITR 100 MCG/2 ML ONE (08:28)
[2023-07-31] MEDS ORDERED: KETOROLAC 30 MG/ML INJ ONE (08:29)
[2023-07-31] MEDS ORDERED: LIDOCAINE 2% MPF 5 ML VIAL ONE (08:32)
[2023-07-31] MEDS ORDERED: ONDANSETRON 4 MG/2 ML VIAL ONE (08:32)
[2023-07-31] MEDS ORDERED: EPHEDRINE SULF 50 MG/ML VIAL ONE (09:08)
--- NOTE | 2023-07-31 09:20 | P.BOP ---
Preoperative diagnosis: tender parietal scalp mass Postoperative diagnosis: same Primary procedure: Excisional biopsy tender parietal scalp mass 3x3cm Estimated blood loss: <10cc Specimen: mass Findings: mass Anesthesia: General Complications: None Transferred to: Recovery Room Condition: Good
[2023-07-31 09:51] VITALS: O2SAT 100
[2023-07-31] MEDS ORDERED: MORPHINE 4 MG/ML SYR ONE (10:02)
[2023-07-31 10:31] VITALS: BP 122/67; TEMP 96.8
--- NOTE | 2023-08-02 17:08 | EKG ---
Test Date: 2023-07-28 Test Time: 17:00:05 Napper Tender: SIOBHAN MEASUREMENT RESULTS: Intervals: Rate: 66 MT: 140 QRSD: 86 QT: 440 QTc: 461 [place]: P: 61 MT: 140 QRS: 68 T: 62 INTERPRETIVE STATEMENTS: Sinus rhythm with occasional premature ventricular complexes Otherwise normal ECG Compared to ECG 09/09/2018 19:29:36 Ventricular premature complex(es) now present Electronically Signed On 08-02-23 16:55:52 MACHINE ASSEMBLER by Giovanni Alatorre
== END 2023-07-31 10:40 | disposition home or self-care (01) ==
LOC: OR 07:54
PROVIDERS: ATTEND Surgery
PROC: 0JB00ZZ Excision of Scalp Subcutaneous Tissue and Fascia, Open Approach (ICD-10-PCS; principal; 2023-07-31 09:10)
DX: L72.11 Pilar cyst (principal); I10 Essential (primary) hypertension; K21.9 Gastro-esophageal reflux disease without esophagitis
CPT/HCPCS: 93005; 85025; 80048; 36415; 88304; 71046; 11423; J2704; J2001; J2250; J3010; J2405; J7120; J0690; 88305

== ENCOUNTER → 2023-10-12 | Emergency (ER) | payer OTHER ==
[~2023-10-12] MED LIST: FAMOTIDINE 20 MG/2 ML VIAL IV ONE; HYDROMORPHONE HCL 1 MG/ML INJ ONE; MORPHINE 4 MG/ML SYR ONE; NA CHLORIDE 0.9% 1,000 ML ONE; NA CHLORIDE 0.9% 100 ML ONE; ONDANSETRON 4 MG/2 ML VIAL ONE; PIPERACIL/TAZO 3.375 GM VIAL IV ONE
--- OUTSIDE RECORDS SUMMARY | 2023-10-12 08:06 | XMS REPORT | Continuity of Care Document ---
Author Name Unknown Address [address] [place] [address] [employer] Address [address] [place] [address] Care Team Providers Care Diploma Maker Name Role Phone KEM Attending Clinician Unavailable KEM Admitting Clinician Unavailable Encounters Start Date/Time End Date/Time Encounter Type Admission Type Attending Clinicians Care Facility Care Department Encounter ID Source 2022-04-11 00:00:00 2022-04-11 00:00:00 Outpatient SALTY [facility]EV[facility]SON [facility] [id number] Greg carrera [facility] Program
[2023-10-12 08:48] LABS: Absolute Lymphocytes (CBC) 2.4 K/uL (0.7-4.9); Hematocrit 41.5 % (36.0-45.0); Lymphocytes % 17.8 % (15.3-44.8); MCV 95.3 fL (80-100); Platelets 434 thou/uL (152-406); RBC Red Blood Cell Count 4.35 M/uL (3.86-4.86)
--- NOTE | 2023-10-12 09:10 | RAD REPORT ---
EXAM DESCRIPTION: CTAbdomen Pelvis W Contrast - 10/12/2023 8:59 am CLINICAL HISTORY: ABD PAIN COMPARISON: CT ABD PELVIS W CONTRAST dated 04/26/2014 TECHNIQUE: CT of the abdomen and pelvis was performed. All CT scans are performed using dose optimization technique as appropriate and may include automated exposure control or mA/KV adjustment according to patient size. FINDINGS: Lower chest: Mild circumferential thickened distal esophagus. Liver: Too small to characterize low-density liver lesions that are statistically benign. Mild intrah epatic biliary duct dilatation . Biliary: Cholelithiasis. There is a stone impacted near the gallbladder neck. The common bile duct is dilated measuring 13 millimeters. Stomach: No significant focal abnormality. Duodenum: No significant focal abnormality. Pancreas: No significant abnormality. Spleen: No significant abnormality. Adrenal: No suspicious lesions. Kidney/ureter: No hydronephrosis. No renal calculi. Retroperitoneum: No retroperitoneal adenopathy. Vascular: No aneurysm. Bowel: No significant focal abnormality. Normal appendix. Peritoneum: No ascites or free air. Bladder: Grossly unremarkable. Reproductive: No adnexal masses. Bicornuate uterus. Bones: No acute fracture. Other: n/a IMPRESSION: Cholelithiasis with intra and extrahepatic biliary ductal dilatation. No radiopaque comm on bile duct stone identified. Consider MRCP for further evaluation. No CT evidence of acute cholecys titis however there is a stone impacted near the gallbladder neck.
[2023-10-12 09:30] LABS: Albumin 3.7 g/dL (3.4-5.0); Bilirubin Total 0.2 mg/dL (0.2-1.0); Potassium 3.8 mEq/L (3.5-5.1); Protein, Total 7.5 g/dL (6.4-8.2)
--- NOTE | 2023-10-12 09:39 | EDPHYS ---
Physician Documentation [facility] Name: Malinda Cameron Age: 42 yrs Sex: Female : 1980 Arrival Date: 10/12/2023 Time: 08:03 Bed 3 Private MD: ED Physician Brian Baca HPI: 10/12 09:32 This 42 yrs old Female presents to ER via Wheelchair with complaints of liban Abdominal Pain, Back Pain. 09:32 The patient presents with pain that is acute, with no known mechanism of injury. The liban symptoms are located in the right mid back. Onset: The symptoms/episode began/occurred 1 day(s) ago. The pain radiates to the right mid back. Associated signs and symptoms: Pertinent positives: abdominal pain. The problem was sustained from unknown cause. Modifying factors: The patient symptoms are alleviated by nothing, the patient symptoms are aggravated by nothing. Severity of symptoms: At their worst the symptoms were moderate, in the emergency department the symptoms are unchanged. The patient has not experienced similar symptoms in the past. Historical: - Allergies: 08:09 Hydrocodone-Acetaminophen; ll1 08:09 Codeine; ll1 - PMHx: 08:09 Hypertension; Onset of CHF; PVCs; ll1 - Immunization history:: Adult Immunizations up to date. - Social history:: Smoking status: Patient denies any tobacco usage or history of. - Family history:: not pertinent. ROS: 09:32 Constitutional: Negative for fever, chills, and weight loss, Eyes: Negative for injury, liban pain, redness, and discharge, ENT: Negative for injury, pain, and discharge, Neck: Negative for injury, pain, and swelling, Cardiovascular: Negative for chest pain, palpitations, and edema, Respiratory: Negative for shortness of breath, cough, wheezing, and pleuritic chest pain, Back: Negative for injury and pain, : Negative for injury, bleeding, discharge, and swelling, MS/Extremity: Negative for injury and deformity, Skin: Negative for injury, rash, and discoloration, Neuro: Negative for headache, weakness, numbness, tingling, and seizure, Psych: Negative for depression, anxiety, suicide ideation, homicidal ideation, and hallucinations, Allergy/Immunology: Negative for hives, rash, and allergies, Endocrine: Negative for neck swelling, polydipsia, polyuria, polyphagia, and marked weight changes, Hematologic/Lymphatic: Negative for swollen nodes, abnormal bleeding, and unusual bruising, 09:32 Abdomen/GI: Positive for abdominal pain, of the epigastric area and right upper quadrant, Exam: 09:32 Constitutional: This is a well developed, well nourished patient who is awake, alert, liban and in no acute distress. Head/Face: Normocephalic, atraumatic. Eyes: Pupils equal round and reactive to light, extra-ocular motions intact. Lids and lashes normal. Conjunctiva and sclera are non-icteric and not injected. Cornea within normal limits. Periorbital areas with no swelling, redness, or edema. ENT: Nares patent. No nasal discharge, no septal abnormalities noted. Tympanic membranes are normal and external auditory canals are clear. Oropharynx with no redness, swelling, or masses, exudates, or evidence of obstruction, uvula midline. Mucous membranes moist. Neck: Trachea midline, no thyromegaly or masses palpated, and no cervical lymphadenopathy. Supple, full range of motion without nuchal rigidity, or vertebral point tenderness. No Meningismus. Chest/axilla: Normal chest wall appearance and motion. Nontender with no deformity. No lesions are appreciated. Cardiovascular: Regular rate and rhythm with a normal S1 and S2. No gallops, murmurs, or rubs. Normal PMI, no JVD. No pulse deficits. Respiratory: Lungs have equal breath sounds bilaterally, clear to auscultation and percussion. No rales, rhonchi or wheezes noted. No increased work of breathing, no retractions or nasal flaring. Back: No spinal tenderness. No costovertebral tenderness. Full range of motion. Skin: Warm, dry with normal turgor. Normal color with no rashes, no lesions, and no evidence of cellulitis. MS/ Extremity: Pulses equal, no cyanosis. Neurovascular intact. Full, normal range of motion. Neuro: Awake and alert, GCS 15, oriented to person, place, time, and situation. Cranial nerves II-XII grossly intact. Motor strength 5/5 in all extremities. Sensory grossly intact. Cerebellar exam normal. Normal gait. 09:32 ECG was reviewed by the Attending Physician. 09:32 Abdomen/GI: Inspection: distension, that is moderate, Bowel sounds: normal, Palpation: moderate abdominal tenderness, in the epigastric area and right upper quadrant, Liver: no appreciated palpable abnormalities, Hernia: not appreciated, Vital Signs: 08:19 BP 172 / 101; Pulse 55; Resp 18; Temp 97.6; Pulse Ox 100% ; Weight 99.79 kg; Height 5 ll1 ft. 9 in. ; Pain 10/10; 09:06 BP 166 / 86; Pulse 53; Resp 16 S; Pulse Ox 99% on R/A; kc6 10:47 BP 130 / 88; Pulse 61; Resp 17 S; Pulse Ox 96% on R/A; kc6 11:54 BP 122 / 78; Pulse 55; Resp 17 S; Pulse Ox 100% on R/A; kc6 12:32 BP 125 / 92; Pulse 59; Resp 14 S; Pulse Ox 99% on R/A; kc6 08:19 Body Mass Index 32.49 (99.79 kg, 175.26 cm) ll1 08:19 Pain Scale: Adult ll1 MDM: 08:09 Patient medically screened. [facility] 10/12 08:06 Order name: CBC with Diff; Complete Time: 09:08 [facility] 10/12 08:06 Order name: CMP; Complete Time: 09:30 [facility] 10/12 08:06 Order name: Lipase; Complete Time: 09:30 [facility] 10/12 08:48 Order name: Troponin High Sensitivity; Complete Time: 10:06 [facility] 10/12 09:08 Order name: BNP; Complete Time: 11:05 [facility] 10/12 08:06 Order name: CT Abd/Pelvis - IV Contrast Only; Complete Time: 09:30 [facility] 10/12 08:48 Order name: Chest Single View XRAY; Complete Time: 09:40 [facility] 10/12 08:48 Order name: US Abdomen Limited [facility] 10/12 09:40 Order name: Cholangiogram; Complete Time: 11:05 EDMD 10/12 08:48 Order name: EKG; Complete Time: 08:48 [facility] 10/12 08:06 Order name: IV Saline Lock; Complete Time: 08:36 [facility] 10/12 08:06 Order name: Labs collected and sent; Complete Time: 08:36 [facility] 10/12 08:48 Order name: EKG - Nurse/Tech; Complete Time: 09:17 [facility] EC:32 Rate is 72 beats/min. Rhythm is regular. QRS Bishop is Normal. AL interval is normal. QRS liban interval is normal. QT interval is normal. No Q waves. T waves are Normal. No ST changes noted. Clinical impression: NSR w/ Non-specific ST/T Changes and No evidence of ischemia. Interpreted by me. Reviewed by me. Administered Medications: 08:45 Drug: NS 0.9% IV 1000 ml IV at 1 bolus Per protocol; 1000 mL bolus Route: IV; Rate: 1 kc6 bolus; Site: right forearm; 11:54 Follow up: Response: No adverse reaction; IV Status: Completed infusion; IV Intake: kc6 1000ml 08:45 Drug: Famotidine IVP 20 mg IVP once; dilute with 10 mL 0.9% NaCl; give over 2 minutes kc6 Route: IVP; Site: right forearm; 09:06 Follow up: Response: No adverse reaction kc6 08:45 Drug: Ondansetron IVP 4 mg IVP once; over 2 minutes Route: IVP; Site: right forearm; kc6 09:29 Follow up: Response: No adverse reaction; Nausea is decreased kc6 08:45 Drug: morphine IVP or IV 4 mg IVP once over 4 mins Route: IVP; Infused Over: 4 mins; kc6 Site: right forearm; 09:06 Follow up: Response: No adverse reaction; Pain is unchanged, physician notified; RASS: kc6 Alert and Calm (0) 09:17 Drug: HYDROmorphone IVP 1 mg IVP once Route: IVP; Site: right forearm; kc6 09:40 Follow up: Response: No adverse reaction; Pain is unchanged, physician notified; RASS: kc6 Alert and Calm (0) 09:17 Drug: Ondansetron IVP 4 mg IVP once; over 2 minutes Route: IVP; Site: right forearm; kc6 10:11 Follow up: Response: No adverse reaction; Nausea is decreased kc6 09:49 Drug: HYDROmorphone IVP 1 mg IVP once Route: IVP; Site: right forearm; kc6 10:46 Follow up: Response: No adverse reaction; Pain is decreased; RASS: Alert and Calm (0) kc6 10:46 Drug: Piperacillin-Tazobactam IVPB 3.375 grams IVPB once over 60 mins; (mix in NS 100 kc6 mL) Route: IVPB; Infused Over: 60 mins; Site: right forearm; 11:54 Follow up: Response: No adverse reaction; IV Status: Completed infusion; IV Intake: kc6 100ml Disposition Summary: 10/12/23 09:38 Transfer Ordered Notes: Transfer Location: [facility] liban Reason: Higher level of care liban Condition: Stable liban Problem: new liban Symptoms: have improved liban Accepting Physician: TO [facility], ERCP(10/12/23 12:59) kc6 Diagnosis - Calculus of gallbladder and bile duct with acute cholecystitis with obstruction liban - Epigastric abdominal tenderness liban - Elevated white blood cell count liban Forms: - Medication Reconciliation Form liban - SBAR form liban Signatures: Dispatcher [employer] EDBrian Phelps MD MD cha Lewis, Lynsay, RN RN ll1 Ute Lopez RN RN kc6 Corrections: (The following items were deleted from the chart) 12:59 09:38 TO [facility], ERCP liban kc6
--- NOTE | 2023-10-12 09:39 | ER ---
Nurse's Notes [facility] Name: Malinda Cameron Age: 42 yrs Sex: Female : 1980 Arrival Date: 10/12/2023 Time: 08:03 Bed 3 Private MD: Diagnosis: Calculus of gallbladder and bile duct with acute cholecystitis with obstruction;Epigastric abdominal tenderness;Elevated white blood cell count Presentation: 10/12 08:19 Chief complaint: Patient states: Abdominal pain with N/V started at 4 AM. Coronavirus ll1 screen: Client denies travel out of the [place] in the last 14 days. At this time, the client does not indicate any symptoms associated with coronavirus-19. Ebola Screen: Patient denies travel to an Ebola-affected area in the 21 days before illness onset. Initial Sepsis Screen: Does the patient meet any 2 criteria? No. Patient's initial sepsis screen is negative. Does the patient have a suspected source of infection? Yes: Acute abdominal pain. Risk Assessment: Do you want to hurt yourself or someone else? Patient reports no desire to harm self or others. Onset of symptoms was October 12, 2023. 08:19 Method Of Arrival: Wheelchair ll1 08:19 Acuity: POWER 3 ll1 Historical: - Allergies: 08:09 Hydrocodone-Acetaminophen; ll1 08:09 Codeine; ll1 - PMHx: 08:09 Hypertension; Onset of CHF; PVCs; ll1 - Immunization history:: Adult Immunizations up to date. - Social history:: Smoking status: Patient denies any tobacco usage or history of. - Family history:: not pertinent. Screenin:30 [facility] ED Fall Risk Assessment (Adult) History of falling in the last 3 months, kc6 including since admission No falls in past 3 months (0 pts) Confusion or Disorientation No (0 pts) Intoxicated or Sedated No (0 pts) Impaired Gait No (0 pts) Mobility Assist Device Used No (0 pt) Altered Elimination No (0 pt) Score/Fall Risk Level 0 - 2 = Low Risk. Abuse screen: Denies threats or abuse. Denies injuries from another. Nutritional screening: No deficits noted. Tuberculosis screening: No symptoms or risk factors identified. Assessment: 08:30 General: Appears in no apparent distress. uncomfortable, well groomed, well developed, kc6 Behavior is calm, cooperative, appropriate for age. Pain: Complains of pain in abdomen Noted to be moaning. Neuro: Level of Consciousness is awake, alert, obeys commands, Oriented to person, place, time, situation, Appropriate for age. Cardiovascular: Capillary refill < 3 seconds. Respiratory: Airway is patent Trachea midline Respiratory effort is even, unlabored, Respiratory pattern is regular, symmetrical. GI: Abdomen is flat, non-distended, Bowel sounds present X 4 quads. Reports nausea, vomiting. : No signs and/or symptoms were reported regarding the genitourinary system. EENT: No signs and/or symptoms were reported regarding the EENT system. Derm: No signs and/or symptoms reported regarding the dermatologic system. Skin is intact, is healthy with good turgor, Skin is pink, warm \T\ dry. Musculoskeletal: No signs and/or symptoms reported regarding the musculoskeletal system. Circulation, motion, and sensation intact. Capillary refill < 3 seconds, Range of motion: intact in all extremities. 09:30 Reassessment: Patient appears in no apparent distress at this time. No changes from kc6 previously documented assessment. Patient and/or family updated on plan of care and expected duration. Pain level reassessed. Patient is alert, oriented x 3, equal unlabored respirations, skin warm/dry/pink. 10:30 Reassessment: Patient appears in no apparent distress at this time. No changes from kc6 previously documented assessment. Patient and/or family updated on plan of care and expected duration. Pain level reassessed. Patient is alert, oriented x 3, equal unlabored respirations, skin warm/dry/pink. 11:30 Reassessment: Patient appears in no apparent distress at this time. No changes from kc6 previously documented assessment. Patient and/or family updated on plan of care and expected duration. Pain level reassessed. Patient is alert, oriented x 3, equal unlabored respirations, skin warm/dry/pink. 12:32 Reassessment: Patient appears in no apparent distress at this time. No changes from kc6 previously documented assessment. Patient and/or family updated on plan of care and expected duration. Pain level reassessed. Patient is alert, oriented x 3, equal unlabored respirations, skin warm/dry/pink. Vital Signs: 08:19 BP 172 / 101; Pulse 55; Resp 18; Temp 97.6; Pulse Ox 100% ; Weight 99.79 kg; Height 5 ll1 ft. 9 in. ; Pain 10/10; 09:06 BP 166 / 86; Pulse 53; Resp 16 S; Pulse Ox 99% on R/A; kc6 10:47 BP 130 / 88; Pulse 61; Resp 17 S; Pulse Ox 96% on R/A; kc6 11:54 BP 122 / 78; Pulse 55; Resp 17 S; Pulse Ox 100% on R/A; kc6 12:32 BP 125 / 92; Pulse 59; Resp 14 S; Pulse Ox 99% on R/A; kc6 08:19 Body Mass Index 32.49 (99.79 kg, 175.26 cm) ll1 08:19 Pain Scale: Adult ll1 ED Course: 08:03 Patient arrived in ED. rg4 08:05 Brian Baca MD is Attending Physician. liban 08:09 Arm band placed on Patient placed in an exam room, on a stretcher. ll1 08:20 Triage completed. ll1 08:30 Patient has correct armband on for positive identification. Bed in low position. Call kc6 light in reach. Side rails up X 1. Client placed on continuous cardiac and pulse oximetry monitoring. NIBP monitoring applied. 08:30 Patient maintains SpO2 saturation greater than 95% on room air. kc6 08:36 Inserted saline lock: 22 gauge in right forearm, using aseptic technique. Blood ds4 collected. 09:01 CT Abd/Pelvis - IV Contrast Only In Process Unspecified. EDMS 09:04 Ute Lopez, RN is Primary Nurse. kc6 09:06 Chest Single View XRAY In Process Unspecified. EDMS 09:40 BNP Sent. kc6 09:40 Troponin High Sensitivity Sent. kc6 10:28 Cholangiogram In Process Unspecified. EDMS 10:48 US Abdomen Limited In Process Unspecified. EDMS 10:57 spoke with dao henderson for acceptance at [facility]. bc6 11:56 spoke with min at [facility] given an ETA of 30 minutes. bc6 12:58 No provider procedures requiring assistance completed. Patient transferred, IV remains kc6 in place. Administered Medications: 08:45 Drug: NS 0.9% IV 1000 ml IV at 1 bolus Per protocol; 1000 mL bolus Route: IV; Rate: 1 kc6 bolus; Site: right forearm; 11:54 Follow up: Response: No adverse reaction; IV Status: Completed infusion; IV Intake: kc6 1000ml 08:45 Drug: Famotidine IVP 20 mg IVP once; dilute with 10 mL 0.9% NaCl; give over 2 minutes kc6 Route: IVP; Site: right forearm; 09:06 Follow up: Response: No adverse reaction kc6 08:45 Drug: Ondansetron IVP 4 mg IVP once; over 2 minutes Route: IVP; Site: right forearm; kc6 09:29 Follow up: Response: No adverse reaction; Nausea is decreased kc6 08:45 Drug: morphine IVP or IV 4 mg IVP once over 4 mins Route: IVP; Infused Over: 4 mins; kc6 Site: right forearm; 09:06 Follow up: Response: No adverse reaction; Pain is unchanged, physician notified; RASS: kc6 Alert and Calm (0) 09:17 Drug: HYDROmorphone IVP 1 mg IVP once Route: IVP; Site: right forearm; kc6 09:40 Follow up: Response: No adverse reaction; Pain is unchanged, physician notified; RASS: kc6 Alert and Calm (0) 09:17 Drug: Ondansetron IVP 4 mg IVP once; over 2 minutes Route: IVP; Site: right forearm; kc6 10:11 Follow up: Response: No adverse reaction; Nausea is decreased kc6 09:49 Drug: HYDROmorphone IVP 1 mg IVP once Route: IVP; Site: right forearm; kc6 10:46 Follow up: Response: No adverse reaction; Pain is decreased; RASS: Alert and Calm (0) kc6 10:46 Drug: Piperacillin-Tazobactam IVPB 3.375 grams IVPB once over 60 mins; (mix in NS 100 kc6 mL) Route: IVPB; Infused Over: 60 mins; Site: right forearm; 11:54 Follow up: Response: No adverse reaction; IV Status: Completed infusion; IV Intake: kc6 100ml Medication: 12:59 VIS not applicable for this client. kc6 Intake: 11:54 IV: 1000ml; Total: 1000ml. kc6 11:54 IV: 100ml; Total: 1100ml. kc6 Outcome: 09:38 ER care complete, transfer ordered by MD. louie 12:59 Transferred by ground EMS to [facility], [facility], Transfer form completed. kc6 Note: report called to DAVE Burrows 12: Condition: stable 12:59 Instructed on the need for transfer, :59 Patient left the ED. kc6 Signatures: Dispatcher [employer] EDBrian Phelps MD MD cha Swanson, Donovan ds4 Tiana Zambrano rg4 Zoran Whitley RN RN ll1 Ute Lopez RN RN kc6 Kimber Tavera6
--- NOTE | 2023-10-12 09:39 | RAD REPORT ---
EXAM DESCRIPTION: RAD - Chest Single View - 10/12/2023 9:04 am CLINICAL HISTORY: ABDOMINAL DISTENTION COMPARISON: Chest Pa And Lat (2 Views) dated 07/28/2023; Chest Pa And Lat (2 Views) dated 04/06/2016; Chest Single View dated 02/09/2016; Chest Single View dated 12/29/2015 FINDINGS: Lines: None. Lungs: No evidence of edema or pneumonia. Pleural: No significant pleural effusions or pneumothorax. Cardiac: The heart size is within normal limits. Mediastinum: Within normal limits. Bones: No acute fractures. Other: None IMPRESSION: No acute cardiopulmonary disease.
--- NOTE | 2023-10-12 10:40 | RAD REPORT ---
EXAM DESCRIPTION: MRI - Cholangiogram - 10/12/2023 10:27 am CLINICAL HISTORY: Obstructed Common Bile Duct COMPARISON: No comparisons FINDINGS: Three-dimensional MRCP was performed using maximum intensity projection reconstruction on the same work station. Cholelithiasis is present. There is a stone impacted near the gallbladder neck. The common bile duct is mildly dilated measuring 7 millimeters but no evidence of choledocholithiasis or stricture. . Ther e is low insertion of the cystic duct. Mild gallbladder wall thickening is present . Mild extrahepati c biliary duct dilatation . No pancreatic ductal dilatation. Mild thickened distal esophagus. Limited T2 sequences through the abdomen demonstrates no bulky adenopathy, significant free fluid or abscess. IMPRESSION: Cholelithiasis. Mild gallbladder wall thickening which could reflect cholecystitis. A st one is impacted the gallbladder neck. Mild intra and extrahepatic biliary ductal dilatation but witho ut evidence of stricture, common bile duct stone, or mass. Note that there is low insertion of the cy stic duct.
--- NOTE | 2023-10-12 11:20 | RAD REPORT ---
EXAM DESCRIPTION: US - Abdomen Exam Limited - 10/12/2023 10:46 am CLINICAL HISTORY: ABD PAIN COMPARISON: Cholangiogram dated 10/12/2023 FINDINGS: The gallbladder demonstrates shadowing gallstones. Gallbladder wall is thickened measuring 6 millimeters. The common bile duct is dilated measuring 8 mm. A stone is impacted at the gallbladde r neck. Positive sonographic Winkler's sign. IMPRESSION: Sonographic findings consistent with acute cholecystitis. Gallstones, gallbladder wall t hickening, and sonographic Winkler's sign present. The common bile duct is mildly dilated. Reference MRCP.
[2023-10-12 13:27] VITALS: TEMP 97.6
[2023-10-12 13:45] VITALS: BP 125/92; O2SAT 99
--- NOTE | 2023-10-16 15:15 | EKG ---
Test Date: 2023-10-12 Test Time: 09:21:55 Master Sonar Technician: CELINE MEASUREMENT RESULTS: Intervals: Rate: 72 TN: 152 QRSD: 88 QT: 446 QTc: 488 [place]: P: 69 TN: 152 QRS: 65 T: 57 INTERPRETIVE STATEMENTS: Normal sinus rhythm Right atrial enlargement Minimal voltage criteria for LVH, may be normal variant Septal infarct, age undetermined Abnormal ECG Compared to ECG 07/28/2023 17:00:05 Atrial abnormality now present Left ventricular hypertrophy now present Myocardial infarct finding now present Ventricular premature complex(es) no longer present Electronically Signed On 10-16-23 15:03:47 BIZTALK ARCHITECT by Giovanni Alatorre
== END ==
LOC: ER 08:03
DX: K80.63 Calculus of gallbladder and bile duct with acute cholecystitis with obstruction (principal); D72.829 Elevated white blood cell count, unspecified; I10 Essential (primary) hypertension; Z88.5 Allergy status to narcotic agent
CPT/HCPCS: 93005; 85025; 36415; 84484; 83690; 80053; 83880; 74177; 71045; 74181; 76705; Q9967; J2543; J1170 ×2; J2405 ×2; J7030